=== PATIENT | male | born 1985 | race Caucasian/White ===

== ENCOUNTER 2020-04-26 02:12 | Emergency (ER) | payer OTHER ==
[2020-04-26] MEDS ORDERED: Aspirin Chewable 81 MG TAB ONE (02:25)
[2020-04-26 02:34] LABS: #Basophils 0.1 thou/uL (0.0-0.2); #Eosinphils 0.3 thou/uL (0.0-0.7); #Lymphocytes 2.4 thou/uL (1.20-3.40); %Basophils 0.9 % (0.0-1.0); %Eosinophils 2.5 % (0.0-10.0); %Lymphocytes 18.6 % (21.0-51.0); %Monocytes 7.8 % (0.0-10.0); %Neutrophils 70.1 % (42.0-75.0); Hemoglobin 13.2 g/dL (14.0-18.0); Mean Corpuscular HGB CONC 31.1 g/dL (32.0-36.0); Mean Corpuscular Volume 86.7 fL (78.0-98.0); Mean Platelet Volume 7.6 fL (7.4-10.4); Platelet Count 425 thou/uL (130-400); RBC Distribution Width 12.4 % (11.5-14.5); Red Blood Cell (RBC) Count 4.91 mill/uL (4.70-6.10); White Blood Cell (WBC) Count 12.8 thou/uL (4.8-10.8)
[2020-04-26 02:45] LABS: AST (SGOT) 16 U/L (5-34); Albumin 4.5 g/dL (3.5-5.0); Alkaline Phosphatase 139 U/L (40-110); Anion Gap 17 mmol/L (10-20); BUN (Urea Nitrogen) 16 mg/dL (8.9-20.6); Bilirubin, Total 0.4 mg/dL (0.2-1.2); Calc. Creatinine Clearance 0 mL/min (70-130); Calcium 9.8 mg/dL (7.8-10.44); Carbon Dioxide 25 mmol/L (22-29); Chloride 103 mmol/L (98-107); Estimated GFR-MDRD 74; Globulin 3.4 g/dL (2.4-3.5); Glucose 115 mg/dL (70-105); Protein, Total 7.9 g/dL (6.0-8.3); Sodium 141 mmol/L (136-145)
[2020-04-26 03:05] LABS: ALT (SGPT) 29 U/L (8-55)
[2020-04-26] MEDS ORDERED: Morphine 4 MG/ML VIAL ONE (03:11)
[2020-04-26] MEDS ORDERED: Nitroglycerin 0.4 MG TAB 1 EACH ONE (03:11)
[2020-04-26] MEDS ORDERED: Ondansetron PF 4 MG/2 ML Vial ONE (03:19)
--- NOTE | 2020-04-26 10:14 | RAD ---
PORTABLE CHEST: DATE: 04/26/2020. FINDINGS: An AP portable film at 0236 shows cardiomegaly but no vascular congestion, edema, or large pleural ef fusion. The left hemithorax is semiopaque, but I believe it is due to positioning and slight rotatio n of the patient. There may need to be a followup chest film to recheck the left lung depending upon the symptoms. IMPRESSION: Cardiomegaly. See comments above. POS: HOME
== END 2020-04-26 05:10 | disposition short-term general hospital (02) ==
LOC: BURERS 02:12
DX: R07.89 Other chest pain (principal); K21.9 Gastro-esophageal reflux disease without esophagitis; Z79.899 Other long term (current) drug therapy
CPT/HCPCS: 71045; 80053; 83880; 84484; 85025; 93005; 96374; 96375; J2270; J2405